=== PATIENT | female | born 1990 | race African-American/Black ===

== ENCOUNTER 2016-09-30 14:42 | Emergency (ER) | payer OTHER ==
[~2016-09-30] VITALS: Ht 162.6 cm; Wt 81.7 kg
[~2016-09-30 14:42] MED LIST: APAP500; APAP500 PO; CITRANATAL B-C1 EAC1; COLACE 100 MG100 MG; COLACE 100 MG100 MG PO; COLACE100 MG PO; DERMOPLAST SPRA56 ML; HYDROCODON-ACE1 EAC7 PO; IBUPROFEN 400400 M1 OR; IBUPROFEN 600600 M1 PO; IBUPROFEN 800800 M1; IBUPROFEN 800800 M1 PO; IRON325; IRON325 PO; IROSPAN 24/6 T1 EACH PO; LANOLIN56 GM; LANOLIN56 GM TOP; LOCOID 0.1% CRE15 GM TP; PNV-OB WITH DH1 EACH; PRENATAL COMPL1 EACH; PRENATAL OR; SENNA PO; TUCKS MEDICATE1 EAC1; TUCKS MEDICATE1 EAC1 TOP
[2016-09-30 15:01] LABS: HEMATOCRIT 39.6 % (37.0-47.0); HEMOGLOBIN 12.7 gm/dL (12.0-15.0); MCH 25.6 pg (26.0-34.0); MCHC 32.1 % (28.0-37.0); MCV 79.8 fL (80.0-100.0); RBC 4.96 mil/uL (4.20-5.00); RDW 18.6 % (10.5-14.5); WBC 9.8 thou/uL (4.0-11.0)
[2016-09-30 15:10] LABS: MANUAL DIFF YES
[2016-09-30 15:11] LABS: CALCIUM 9.1 mg/dL (8.5-10.1); CREATININE 0.9 mg/dL (0.6-1.3); POTASSIUM 3.8 mmol/L (3.5-5.1)
[2016-09-30 15:32] LABS: ANISOCYTOSIS 1+; PLATELET COUNT 109 thou/uL (150-400); PLATELET ESTIMATE SLIGHTLY DECREASED; TOTAL CELL COUNT 100
[2016-09-30 20:08] VITALS: BP 193/121
== END 2016-09-30 20:12 | disposition short-term general hospital (02) ==
LOC: ER 14:42
PROVIDERS: Emergency Medicine
DX: D27.1 Benign neoplasm of left ovary (principal); N83.512 Torsion of left ovary and ovarian pedicle; F17.210 Nicotine dependence, cigarettes, uncomplicated

== ENCOUNTER 2020-07-15 10:31 | Emergency (ER) | payer OTHER ==
[~2020-07-15] VITALS: Ht 160 cm; Wt 86.2 kg
[2020-07-15 11:47] LABS: ABSOLUTE NEUTROPHILS 5.7 thou/uL (1.4-8.2); BASOPHILS 0.6 % (0.0-2.0); EOSINOPHILS 2.6 % (0.0-3.0); HEMATOCRIT 39.7 % (37.0-47.0); HEMOGLOBIN 12.7 gm/dL (12.0-15.0); LYMPHOCYTES 19.2 % (24.0-44.0); MCH 28.2 pg (26.0-34.0); MCV 88.1 fL (80.0-100.0); MONOCYTES 7.2 % (1.0-8.0); POLYS 70.4 % (36.0-66.0); RDW 18.5 % (10.5-14.5); WBC 8.1 thou/uL (4.0-11.0)
[2020-07-15 11:55] LABS: CALCIUM 8.9 mg/dL (8.5-10.1); CREATININE 0.9 mg/dL (0.6-1.0)
[2020-07-15 12:01] LABS: ALBUMIN 3.6 g/dL (3.4-5.0); TOTAL BILIRUBIN 0.4 mg/dL (0.2-1.0); TOTAL PROTEIN 7.5 g/dL (6.4-8.2)
[2020-07-15] MEDS ORDERED: GABAPENTIN 100100 MG PO (12:49)
[2020-07-15] MEDS ORDERED: NORCO 5-325 TA1 EAC2 PO (12:49)
[2020-07-15] MEDS ORDERED: LIDOCAINE PAIN1 EACH TRANSDERM (12:49)
[2020-07-15 13:03] VITALS: BP 128/76
[2020-07-15 13:06] LABS: PLATELET COUNT 116 thou/uL (150-400)
== END 2020-07-15 13:04 | disposition home or self-care (01) ==
LOC: ER 10:31
PROVIDERS: Physician Assistant
DX: L53.8 Other specified erythematous conditions (principal); R20.2 Paresthesia of skin; R20.0 Anesthesia of skin; F17.210 Nicotine dependence, cigarettes, uncomplicated